=== PATIENT | male | born 1995 | race Caucasian/White ===

== ENCOUNTER 2025-01-02 14:32 | Emergency (ER) | payer OTHER, SELFPAY ==
--- OUTSIDE RECORDS SUMMARY | 2025-01-02 14:34 | XMS_ITS | Clinical Summary ---
Author Organization [facility] Address [address] [place] [id number] Care Team Providers Care Tire Buster Name Role Phone [facility] Primary Care Provider Unavailabl e Allergies Active Allergy Reactions Criticality Noted Date Comments Amoxicillin Rash 02/03/2006 Medications SUMAtriptan (IMITREX) 25 mg tablet Take 1 by mouth when he feels a headache coming on. 01/02/2019 Active propranolol (INDERAL) 20 mg tabletIndicatio ns:Migraine syndrome Take 1 tablet by mouth 2 times daily. 180 tablet 01/09/2019 Active Active Problems Problem Noted Date Diagnosed Date Tobacco use 04/01/2015 Migraine syndrome Immunizations Name Administration Dates Next Due Meningococcal Vaccine 07/20/2005 Td (Age >=7 Years) 07/20/2005 Tdap 12/16/2015 Family History Medical History Relation Name Comments Good Health Father Heart Disease Maternal Grandfather Migraines Maternal Grandfather Migraines Maternal Grandmother Other Maternal Grandmother COPD Stroke Maternal Grandmother Asthma Mother Good Health Mother Genetic Other HTN- MGF, MGM Relation Name Status Comments Father Alive Maternal Grandfather Alive Maternal Grandmother Alive Mother Alive Other Paternal Grandfather MVA Paternal Grandmother Alive Social History Tobacco Use Types Packs/Day Years Used Date Smoking Tobacco: Every Day Cigarettes Smokeless Tobacco: Never Tobacco Cessation:Ready to Q uit: No; Counseling Given: Yes Alcohol Use Standard Drinks/Week Comments No 0 (1 standard drink = 0.6 oz pur e alcohol) Alcoholic Drinks/day: 0 Sex and Gender Information Value Date Recorded Sex Assigned at Not on file 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 Gender Identity Not on file Sexual Orientation Not on file Obstetrics History Last Filed Vital Signs Vital Sign Reading Time Taken Comments Blood Pressure 143/83 01/09/2019 1:24 PM SENIOR BACKUP ADMINISTRATOR Pulse 112 01/09/2019 1:24 PM SENIOR BACKUP ADMINISTRATOR Temperature 36.6 C (97.9 F) 01/09/2019 1:24 PM SENIOR BACKUP ADMINISTRATOR Respiratory Rate - - Oxygen Saturation 98% 07/15/2014 9:36 AM CDT Inhaled Oxygen Concentration - - Weight 88.9 kg (196 lb) 01/09/2019 1:24 PM SENIOR BACKUP ADMINISTRATOR Height 181.6 cm (5' 11.5) 01/09/2019 1:24 PM CS T Body Mass Index 26.96 01/09/2019 1:24 PM SENIOR BACKUP ADMINISTRATOR Plan of Treatment Health Maintenance Due Date Last Done Comments HIV for age 15-65 2008 Hepatitis C screening for age 18-79 2011 Depression screening for age 12+ 07/17/2018 07/17/2017, 06/02/2016 BMI (ht and wt on same day) for age 18+ 01/10/2020 01/09/2019, 07/17/2017, 06/02/2016, Additional history exists COVID-19 vaccine series ( season) 2024 Influenza for age 9-49 07/07/2024 Tetanus booster 12/16/2025 12/16/2015, 07/20/2005 Tdap Completed 12/16/2015 Pneumococcal series for age 6-49 Aged Out No longer eligible based on patient's age to complete this topic Care Teams T[employer] Buster Relationship Specialty Start Date End Date Micheal Neely PCP - General 02/12/18
[2025-01-02 14:36] VITALS: BP 143/80; PULSE 60; RESP 18; TEMP 35.9; O2SAT 100; BMI 25.8
[2025-01-02] MEDS: 0.9 % SODIUM CHLORIDE 1000 ml 1,000 ML IV (15:11)
[2025-01-02] MEDS: KETOROLAC 15 MG/ML inj IVP (15:13)
[2025-01-02] MEDS: ONDANSETRON 2 MG/ML inj 4 MG IVP (15:14)
[2025-01-02 15:22] LABS: Basophils Absolute Auto 0.02 K/uL (0.00-0.30); Basophils Percent Auto 0.2 % (0.0-3.0); Eosinophils Absolute Auto 0.23 K/uL (0.00-0.50); Eosinophils Percent Auto 2.5 % (0.0-7.0); Hematocrit 47.8 % (37.0-53.0); Hemoglobin* 16.5 gm/dL (13.5-17.5); Immature Granulocytes Abs Auto 0.01 K/uL (0.00-0.30); Immature Granulocytes Pct Auto 0.1 %; Lactate Sepsis w/Reflex* 1.7 mmol/L (0.5-1.9); Lymphocytes Absolute Auto 2.86 K/uL (0.90-2.90); Mean Corpuscular HGB Conc 35 gm/dL (32-36); Mean Corpuscular Hemoglobin 28 pg (26-34); Mean Corpuscular Volume 81 fL (80-100); Monocytes Percent Auto 6.6 % (0.0-11.0); Neutrophils Absolute Auto 5.51 K/uL (1.7-7.0); Neutrophils Percent Auto 59.6 % (42.0-72.0); Platelet Count* 255 K/uL (140-440); RDW Coefficient of Variation % 13.1 % (11.5-15.5); Red Blood Count 5.94 m/uL (4.30-5.90); White Blood Count* 9.24 K/uL (4.50-11.00)
--- NOTE | 2025-01-02 15:28 | ED.GENADULT ---
HPI - General Adult General Date Seen: 01/02/25 Chief complaint: Abdominal Pain Stated complaint: chest/stomach pain, numb arms/legs Time Seen by Provider: 01/02/25 14:38 History of Present Illness HPI narrative: Patient is a 29-year-old male who denies prior past medical history. He presents with his significant other for evaluation of epigastric pain with associated multiple episodes of vomiting. It sounds as if he developed some burning epigastric pain and then his significant other reports greater than 10 episodes of nonbloody emesis. He denies constipation, diarrhea, black or bloody stools. He has not had fevers or urinary symptoms. He denies abdominal surgeries. Says he does not smoke or drink. Says he has had some epigastric pain previously but it would only last a minute or 2 and this is been constant since yesterday. He has not taken any medications at home. Related Data Previous Rx's ?Medication ?Instructions ?Recorded omeprazole 40 mg capsule,delayed 40 mg PO DAILY #14 caps 01/02/25 release Allergies Allergy/AdvReac Type Severity Reaction Status Date / Time amoxicillin Allergy Unknown Verified 01/02/25 14:42 Review of Systems Status of ROS: Reports: 10 or more systems reviewed and unremarkable except as noted in History and below Exam Narrative: Exam Narrative: Vital signs reviewed In general, alert, nontoxic young man. He seems uncomfortable. Head: Normocephalic, atraumatic. Eyes: Sclera clear. Pupils equal and reactive. ENT: Mucous membranes moist. Neck: Supple without adenopathy. Heart: Regular rate and rhythm without murmur. Lungs: Clear. No increased work of breathing, crackles or wheezes. Abdomen: Soft, nondistended. Diffuse mild tenderness without rebound guarding or rigidity. Extremities: Well perfused, pulses intact. No significant edema. Neurologic: Alert, conversant. Speech fluent, face symmetric. Moves all extremities equally. Skin: Warm, dry well perfused. Affect: Normal. Const: Vital Signs, click to edit/add: Vital Signs - 24 hr 01/02/25 14:36 Temperature 96.7 F L Pulse Rate [Right Pulse Oximeter] 60 Respiratory Rate 18 Blood Pressure [Ri ght Upper Arm] 143/80 H Pulse Oximetry 100 Oxygen Delivery Me thod Room Air Course Course ED Course: Following initial evaluation, did do bedside ultrasound. The gallbladder looks normal to me without evidence of stones or significant sludge, wall thickening or pericholecystic fluid. An EKG shows sinus bradycardia, ventricular rate of 50, incomplete right bundle-branch block. Unremarkable T-waves. No acute ST segment changes. I ordered an IV, will give some Toradol and Zofran to start for pain control. Labs pending. Diagnostic considerations would include pancreatitis, biliary colic or cholecystitis felt to be slightly less likely based on ultrasound, gastritis, peptic ulcer disease, appendicitis, diverticulitis, bowel obstruction, volvulus, among others. Following medications he is resting much more comfortably, he says he feels better. His significant other did tell the nurse that he is feeling nauseated again, so I added on some Reglan. Also giving him some Protonix. His labs are reviewed and all normal, notably normal white blood cell count, normal lactate, normal LFTs, normal lipase. I suspect he has a viral process with some underlying gastritis. Patient actually declined the Reglan and Protonix. Will discharge home was Zofran and a prescription for omeprazole. Advised to return for worsening or more severe symptoms, new symptoms such as fever, vomiting despite treatment, bloody stools, black stools, hematemesis. Primary care follow-up next week if not improving over the next couple of days. Vital Signs Vital signs: Initial Vital Signs Temperature 96.7 F L 01/02/25 14:36 Temperature Source Temporal Artery Scan 01/02/25 14:36 Pulse Rate 60 01/02/25 14:36 Pulse Rhythm Regular 01/02/25 14:36 Pulse Strength 3+ Normal 01/02/25 14:36 Respiratory Rate 18 01/02/25 14:36 Blood Pressure 143/80 H 01/02/25 14:36 Blood Pressure Mean 101 01/02/25 14:36 Blood Pressure Position Sitting 01/02/25 14:36 Pulse Oximetry 100 01/02/25 14:36 Oxygen Delivery Method Room Air 01/02/25 14:36 Vital Signs Temperature 96.7 F L 01/02/25 14:36 Pulse Rate 60 01/02/25 14:36 Respiratory Rate 18 01/02/25 14:36 Blood Pressure 143/80 H 01/02/25 14:36 Pulse Oximetry 100 01/02/25 14:36 Oxygen Delivery Method Room Air 01/02/25 14:36 Temperature 96.7 F L 01/02/25 14:36 Pulse Rate 60 01/02/25 14:36 Respiratory Rate 18 01/02/25 14:36 Blood Pressure 143/80 H 01/02/25 14:36 Pulse Oximetry 100 01/02/25 14:36 Oxygen Delivery Method Room Air 01/02/25 14:36 Medications Administered Medications: Discontinued Medications Generic Name Dose Route Start Last Admin Trade Name Freq PRN Reason Stop Dose Admin Sodium Chloride 1,000 mls @ 1,000 mls/hr 01/02/25 15:00 01/02/25 15:11 0.9 % Sodium Chloride 1000 Ml IV 01/02/25 15:59 1,000 mls/hr .Q1H SUKHDEV Administration Ketorolac Tromethamine 15 mg 01/02/25 15:00 01/02/25 15:13 Ketorolac 15 Mg/Ml Inj IVP 01/02/25 15:01 15 mg ONCE ONE Administration Ondansetron HCl 4 mg 01/02/25 15:00 01/02/25 15:14 Ondansetron 2 Mg/Ml Inj IVP 01/02/25 15:01 4 mg ONCE ONE Administration Medical Decision Making Lab Data Lab results reviewed: Yes I reviewed the patient's lab results Labs: Lab Results 01/02/25 Range/Units 15:16 WBC 9.24 (4.50-11.00) K/uL RBC 5.94 H (4.30-5.90) m/uL Hgb 16.5 (13.5-17.5) gm/dL Hct 47.8 (37.0-53.0) % MCV 81 (80-100) fL MCH 28 (26-34) pg MCHC 35 (32-36) gm/dL RDW Coeff of Rajwinder 13.1 (11.5-15.5) % Plt Count 255 (140-440) K/uL Neut % (Auto) 59.6 (42.0-72.0) % Lymph % (Auto) 31.0 (20-44) % Casey % (Auto) 6.6 (0.0-11.0) % Eos % (Auto) 2.5 (0.0-7.0) % Baso % (Auto) 0.2 (0.0-3.0) % Neut # (Auto) 5.51 (1.7-7.0) K/uL Lymph # (Auto) 2.86 (0.90-2.90) K/uL Casey # (Auto) 0.60 (0.00-0.90) K/UL Eos # (Auto) 0.23 (0.00-0.50) K/uL Baso # (Auto) 0.02 (0.00-0.30) K/uL Abs Immat Gran (auto) 0.01 (0.00-0.30) K/uL Imm/Tot Granulo (auto) 0.1 % Sodium 139 (135-149) mmol/L Potassium 3.4 L (3.6-5.1) mmol/L Chloride 103 (96-114) mmol/L Carbon Dioxide 25 (20-32) mmol/L Anion Gap 11 (7-15) mEq/L BUN 9 (5-24) mg/dL Creatinine 1.1 (0.5-1.5) mg/dL Estimated Creat Clear 106.80 Estimated GFR 92 ml/min Glucose 115 (60-115) mg/dL Lactate 1.7 (0.5-1.9) mmol/L Calcium 9.6 (8.4-10.6) mg/dL Total Bilirubin 0.9 (0.1-1.5) mg/dL Direct Bilirubin 0.2 (0.0-0.5) mg/dL AST 29 (12-35) U/L ALT 46 (4-50) U/L Alkaline Phosphatase 96 (40-150) U/L C-Reactive Protein 1.0 (0.5-1.0) mg/dL Total Protein 7.4 (6.0-8.3) g/dL Albumin 4.6 (3.3-5.0) g/dL Lipase 117 (23-300) U/L Ethyl Alcohol < 0.01 L (0.01-0.03) % Discharge Plan Discharge Clinical Impression: Vomiting, Abdominal pain Patient Disposition: Home, Self-Care Condition: Improved Instructions: Acute Nausea and Vomiting (DC), Abdominal Pain (ED) Additional Instructions: You can use Zofran if needed for further nausea and or vomiting. I would recommend sticking with clear liquids for the rest of today. Advance your diet as you start to feel better. I would also recommend at least a couple of weeks of a medicine to decrease stomach acid. I have sent a prescription for you for omeprazole, 40 mg daily for the next 2 weeks. This can be continued, can be purchased [id number], if you feel it is helpful for you. If you are not feeling better over the next couple of days, if you have continued vomiting despite treatment, if you have new symptoms such as fevers, vomiting blood, black or bloody stools, return to the emergency department. Otherwise, see your clinic next week for persistent symptoms. Prescriptions: New omeprazole 40 mg capsule,delayed release(DR/EC) 40 mg PO DAILY Qty: 14 2RF Follow Up/Referrals: Provider,Not a Local [Primary Care Provider] - Stand Alone Forms: [employer] Info Instructions
[2025-01-02 15:42] LABS: Slide Review Reflex No
[2025-01-02 15:44] LABS: Albumin* 4.6 g/dL (3.3-5.0); Chloride* 103 mmol/L (96-114)
[2025-01-02 15:45] LABS: Potassium* 3.4 mmol/L (3.6-5.1); Sodium* 139 mmol/L (135-149)
[2025-01-02 15:47] LABS: Blood Urea Nitrogen* 9 mg/dL (5-24); Creatinine* 1.1 mg/dL (0.5-1.5); Estimated Glomerular Filt Rate 92 ml/min
[2025-01-02 15:48] LABS: Alanine Aminotransferase* 46 U/L (4-50); Alkaline Phosphatase* 96 U/L (40-150); Anion Gap 11 mEq/L (7-15); Aspartate Amino Transferase* 29 U/L (12-35); Bilirubin Direct* 0.2 mg/dL (0.0-0.5); Bilirubin Total* 0.9 mg/dL (0.1-1.5); Calcium* 9.6 mg/dL (8.4-10.6); Carbon Dioxide* 25 mmol/L (20-32); Glucose* 115 mg/dL (60-115); Lipase* 117 U/L (23-300); Total Protein* 7.4 g/dL (6.0-8.3)
[2025-01-02 15:54] LABS: Ethanol* < 0.01 % (0.01-0.03)
== END 2025-01-02 16:44 | disposition home or self-care (01) ==
PROVIDERS: Emergency Provider Emergency Medicine
DX: R10.13 Epigastric pain (principal); R11.10 Vomiting, unspecified
CPT/HCPCS: 36415; 76705; 80048; 80076; 82077; 83605; 83690; 85025; 86140; 93005; 96374; 96375; 99284; J1885; J2405; J7030